=== PATIENT | female | born 1990 | race Caucasian/White ===

== ENCOUNTER → 2018-05-09 | Outpatient (CLI) | payer BC ==
[~2018-05-09] MED LIST: ALPR1TAB2 PO; AMOXICILLIN; BSP5T PO; BUTA-234 PO; BUTA1CAP3 PO; CLIN300C11 PO; CPR500T PO; DICL50TA4 PO; DOXY100C42 PO; FIOROCET; HYDR-2890 PO; HYDR-757 PO; IOHEXOL 350 MG/ML 100 ML (OMNIPAQUE 350) VIAL IV ONE; METH16TA2 PO; METH4TAB PO; METO-351 PO; METR500T PO; MIRT30TA PO; NS 100 ML (IVPB) BAG IV ONE; ONDA4TAB8 PO; PARO10TA81 PO; PHEN200T27 PO; RECEIVED CONTRAST (Hold Metformin) IV SCH; SERT50TA2 PO; SULF1TAB35 PO; SULF1TAB38 PO; TRAM-42 PO; YAZ BIRTH CONTROL
--- NOTE | 2018-05-09 12:07 | Diagnostic Imaging Report ---
PROCEDURE: CT abdomen and pelvis with contrast. TECHNIQUE: Multiple contiguous axial images were obtained through the abdomen and pelvis after administration of intravenous contrast. COMPARISON: Comparison is made to study of 01/15/2015. INDICATION: Right lower abdominal pain and cramping. FINDINGS: There is minimal dependent atelectasis in the lung bases. No focal hepatic or splenic lesion is identified. Gallbladder, biliary tree, and pancreas are unremarkable in appearance. There is no evidence of adrenal gland or renal abnormality. There is no free fluid seen within the abdomen or pelvis. No pathologically enlarged adenopathy is identified. There is mild fluid distention of distal small bowel loops in the lower abdomen and right lower quadrant. Terminal ileum does not appear to be involved. There is no evidence of appendiceal inflammation. Probable labial cysts are similar to the previous exam. IMPRESSION: No acute abnormality or significant change is seen when compared to previous study. There may be mild small bowel ileus or enteritis which is most pronounced in the right lower quadrant of the abdomen. Dictated by: Dictated on workstation # [id number]
== END ==
LOC: RAD 11:09
PROVIDERS: ATTEND Nurse Practitioner Community Health
DX: R10.31 Right lower quadrant pain (principal)
CPT/HCPCS: 74177

== ENCOUNTER 2021-10-07 22:17 | Inpatient (IN) | payer BC, OTHER ==
[~2021-10-07] VITALS: Ht 160 cm; Wt 62.2 kg
[~2021-10-07 22:17] MED LIST changes: +CLIN-144 PO; -CLIN300C11 PO; +DOXY-311 PO; -DOXY100C42 PO; -IOHEXOL 350 MG/ML 100 ML (OMNIPAQUE 350) VIAL IV ONE; +MIRT-94 PO; -MIRT30TA PO; -NS 100 ML (IVPB) BAG IV ONE; -RECEIVED CONTRAST (Hold Metformin) IV SCH
--- NOTE | 2021-10-07 22:26 | ED General ---
General Chief Complaint: Substance Abuse Stated Complaint: OVERDOSE Source of Information: EMS Exam Limitations: Other (PT ANSWERS "I DON'T KNOW" TO ALL QUESTIONS) History of Present Illness Date Seen by Provider: Oct 07, 2021 Time Seen by Provider: 22:13 Initial Comments PT ARRIVES VIA EMS FROM HOME PT WAS FOUND UNRESPONSIVE ON THE LIVING ROOM FLOOR BY PARENTS ON EMS ARRIVAL, PT WAS OBTUNDED, WITH RESPIRATIONS OF 4-6/MIN, O2 SAT 85% ON ROOM AIR AND LIPS WERE CYANOTIC. FAMILY REPORTED TO EMS THAT PT HAS HISTORY OF POLYSUBSTANCE ABUSE EMS GAVE A TOTAL OF 6 MG NARCAN AND PT IS NOW AWAKE, ALERT AND WAS ABLE TO ANSWER QUESTIONS FOR EMS. PT THEN TOLD EMS THAT SHE TOOK FENTANYL --BY MOUTH ACCUCHECK WAS 489 WITH KETONES, PER EMS--PT DOES NOT HAVE ANY HISTORY OF DIABETES. TEMP WAS 94.5 FOR EMS. PT REPORTEDLY HAD A "CYST" REMOVED LAST WEEK AND WAS PRESCRIBED BACTRIM AND OXYCODONE BRINGS IN A BOTTLE OF DULOXETINE PRESCRIBED ON 09/17/21 FAMILY REPORTED TO EMS THAT SHE TAKES KLONOPIN FOR ANXIETY. ON ARRIVAL, PT IS SHIVERING AND C/O BEING COLD, OTHERWISE ANSWERS "I DON'T KNOW" TO ALL QUESTIONS. PT DOES STATE SHE HAS NOT HAD COVID VACCINE LATER, PT IS ABLE TO STATE THAT SHE "TOOK TOO MANY PERCOCET" AND DENIES TAKING ANY FENTANYL STATES SHE BOUGHT THE PERCOCET "FROM A FRIEND" SHE DENIES ANY SUICIDAL INTENT. PT HAD BEEN PRESCRIBED A TOTAL OF #50 OXYCODONE 5/325 SINCE 09/16/21 BY HR ASSISTANT IN [facility] PT STATES SHE HAD A LEFT BARTHOLIN'S CYST REMOVED 09/30/21 PT WAS ALSO PLACED ON BACTRIM FOR THAT PROBLEM PT STATES SHE LIVES IN [place], [place], AND JUST CAME DOWN FOR THE DAY TO VISIT. PT'S HAS A DAUGHTER, WHO IS CURRENTLY WITH HER PARENTS, WHO LIVE HERE. DAD IS IN ROOM LATER AND HE STATES THAT THEY (HE AND AND GRAND DAUGHTER / PT'S DAUGHTER ) LEFT THE HOUSE AROUND 1999 TONIGHT AND PT WAS FINE AT THAT TIME--THEY HAD PT'S DAUGHTER WITH THEM AT THAT TIME. THEY RETURNED HOME AROUND 2129 AND FOUND PT UNRESPONSIVE ON THE FLOOR AND CALLED EMS. PER MED RECONCILIATION, PT HAS BEEN PRESCRIBED MULTIPLE PSYCH AND PAIN MEDICATIONS BY MULTIPLE PROVIDERS OVER THE LAST FEW MONTHS. SEE THAT LIST FOR DETAILS Allergies and Home Medications Allergies Coded Allergies: NKANo Known Allergies (Verified Allergy, Unknown, 01/17/07) Patient Home Medication List Clindamycin HCl (Clindamycin HCl) 300 Mg Capsule, 300 MG PO QID Prescribed by: VINNY FOSTER on 04/11/15 1437 Diclofenac Potassium (Diclofenac Potassium) 50 Mg Tablet, 50 MG PO Q8H PRN for PAIN Prescribed by: CANDI MARIE on 11/24/14 0444 Diclofenac Potassium (Diclofenac Potassium) 50 Mg Tablet, 50 MG PO Q8H PRN for PAIN Prescribed by: VINNY FOSTER on 04/11/15 1437 Sertraline Hcl (Sertraline Hcl) 50 Mg Tablet, 50 MG PO DAILY, (Reported) Entered as Reported by: CHRISTIE HERNÁNDEZ on 06/13/13 1846 Review of Systems Review of Systems Constitutional: see HPI Psychiatric/Neurological: See HPI Past Qgpicqh-Zpyfgq-Miyklo Hx Patient Social History Tobacco Use?: Yes Tobacco type used: Cigarettes Smoking Status: Current Everyday Smoker Substance use?: Yes Substance type: Opiates/Opioids, Misuse of prescript meds Alcohol Use?: No (DENIES) Immunizations Up To Date Tetanus Booster (TDap): Less than 5yrs Seasonal Allergies Seasonal Allergies: No Past Medical History Surgeries: Yes Orthopedic Cardiac: Yes Hypertension Reproductive Disorders: Yes (OVARIAN CYST) Female Reproductive Disorders: Ovarian Cyst Sexually Transmitted Disease: No HIV/AIDS: No Gastrointestinal: Yes Gastroesophageal Reflux Musculoskeletal: Yes Fractures Endocrine: No HEENT: No Cancer: No Psychosocial: Yes Anxiety, Suicide Attempts, Depression Adverse Reaction/Blood Tranf: No Family Medical History Alcoholism 09 BROTHER History of drug abuse 09 BROTHER, Onset:15s - 20 No Family History of: Cancer Chest pain Dementia Family history: Cardiovascular disease Family history: Diabetes mellitus Seizure disorder No Pertinent Family Hx Physical Exam Vital Signs Vital Signs - First Documented 10/07/21 10/07/21 22:17 22:58 Temp 35.6 Pulse 137 Resp 12 Pulse Ox 93 O2 Delivery Room Air O2 Flow Rate 4.00 Capillary Refill : Height, Weight, BMI Height: 5'4" Weight: 120lbs. 5.0oz. 54.029267ip; BMI Method:Stated General Appearance: Thin, Other (UNKEMPT. LIPS DRY AND CRACKED. SHIVERING, BUT IS AWAKE AND ALERT, SPEECH IS NOT SLURRED. ) HEENT: PERRL/EOMI (BUT PINPOINT), Other (DRY ORAL MUCOSA) Respiratory: Normal Breath Sounds, No Accessory Muscle Use, No Respiratory Distress Cardiovascular: No Murmur, Tachycardia Gastrointestinal: Non Tender, Soft Extremity: No Pedal Edema Neurologic/Psychiatric: Alert, No Motor/Sensory Deficits, Other (ORIENTED TO PERSON, PLACE, DISORIENTED TO TIME AND SITUATION ON ARRIVAL. PT IS SHIVERING. SPEECH IS NOT SLURRED. IS SOMEWHAT DROWSY ON ARRIVAL) Skin: Warm/Dry, Pallor Focused Exam Sepsis Stage: Ruled Out Reason for ruling out sepsis: DOES NOT MEET CRITERIA Lactate Level 10/07/21 22:28: Lactic Acid Level 9.83*H Time of Focused Exam: 23:40 Respiratory: Normal Breath Sounds, No Accessory Muscle Use, No Respiratory Distress Cardiovascular: No Edema, No Murmur, Other (HEART RATE DOWN TO 110'S) Capillary Refill: Less Than 3 Seconds Lactic Acid Level Laboratory Tests Test 10/07/21 22:28 Lactic Acid Level 9.83 MMOL/L (0.50-2.00) *H Within 3hrs of presentation: Admin fluids, Blood cultures prior to ABX's, Focus exam, Lactate level Procedures/Interventions Suture Size: 4-0 Progress/Results/Core Measures Suspected Sepsis SIRS Temperature: Pulse: Respiratory Rate: Laboratory Tests 10/07/21 22:22: White Blood Count 8.4 Blood Pressure / Mean: 10/07/21 22:28: Lactic Acid Level 9.83*H Laboratory Tests 10/07/21 22:22: Creatinine 1.13, Platelet Count 363, Total Bilirubin 0.2 Results/Orders Lab Results Laboratory Tests Test 10/07/21 22:22 10/07/21 22:28 10/07/21 22:33 10/07/21 22:42 Range/Units White Blood Count 8.4 4.3-11.0 10^3/uL Red Blood Count 4.27 3.80-5.11 10^6/uL Hemoglobin 13.4 11.5-16.0 g/dL Hematocrit 43 35-52 % Mean Corpuscular Volume 100 H 80-99 fL Mean Corpuscular Hemoglobin 31 25-34 pg Mean Corpuscular Hemoglobin Concent 32 32-36 g/dL Red Cell Distribution Width 13.6 10.0-14.5 % Platelet Count 363 130-400 10^3/uL Mean Platelet Volume 10.8 9.0-12.2 fL Immature Granulocyte % (Auto) 2 % Neutrophils (%) (Auto) 56 42-75 % Lymphocytes (%) (Auto) 39 12-44 % Monocytes (%) (Auto) 1 0-12 % Eosinophils (%) (Auto) 2 0-10 % Basophils (%) (Auto) 1 0-10 % Neutrophils # (Auto) 4.7 1.8-7.8 10^3/uL Lymphocytes # (Auto) 3.2 1.0-4.0 10^3/uL Monocytes # (Auto) 0.1 0.0-1.0 10^3/uL Eosinophils # (Auto) 0.2 0.0-0.3 10^3/uL Basophils # (Auto) 0.0 0.0-0.1 10^3/uL Immature Granulocyte # (Auto) 0.2 H 0.0-0.1 10^3/uL Sodium Level 141 135-145 MMOL/L Potassium Level 5.6 H 3.6-5.0 MMOL/L Chloride Level 103 98-107 MMOL/L Carbon Dioxide Level 17 L 21-32 MMOL/L Anion Gap 21 H 5-14 MMOL/L Blood Urea Nitrogen 15 7-18 MG/DL Creatinine 1.13 0.60-1.30 MG/DL Estimat Glomerular Filtration Rate 66 BUN/Creatinine Ratio 13 Glucose Level 363 H 70-105 MG/DL Calcium Level 9.2 8.5-10.1 MG/DL Corrected Calcium 8.8 8.5-10.1 MG/DL Magnesium Level 2.5 H 1.6-2.4 MG/DL Total Bilirubin 0.2 0.1-1.0 MG/DL Aspartate Amino Transf (AST/SGOT) 24 5-34 U/L Alanine Aminotransferase (ALT/SGPT) 19 0-55 U/L Alkaline Phosphatase 118 40-136 U/L Total Protein 7.3 6.4-8.2 GM/DL Albumin 4.5 3.2-4.5 GM/DL Lipase 37 8-78 U/L Beta-Hydroxybutyrate (Chem panel) 0.15 0.00-0.27 MMOL/L Procalcitonin 0.02 <0.10 NG/ML Serum Test, Qualitative NEGATIVE NEGATIVE Salicylates Level < 5.0 L 5.0-20.0 MG/DL Acetaminophen Level < 10 L 10-30 UG/ML Serum Alcohol < 10 <10 MG/DL Lactic Acid Level 9.83 *H 0.50-2.00 MMOL/L Influenza Type A (RT-PCR) Not Detected Not Detecte Influenza Type B (RT-PCR) Not Detected Not Detecte SARS-CoV-2 RNA (RT-PCR) Not Detected Not Detecte Urine Color YELLOW Urine Clarity CLEAR Urine pH 6.0 5-9 Urine Specific [place] 1.025 H 1.016-1.022 Urine Protein TRACE H NEGATIVE Urine Glucose (UA) 2+ H NEGATIVE Urine Ketones NEGATIVE NEGATIVE Urine Nitrite NEGATIVE NEGATIVE Urine Bilirubin NEGATIVE NEGATIVE Urine Urobilinogen 0.2 < = 1.0 MG/DL Urine Leukocyte Esterase NEGATIVE NEGATIVE Urine RBC (Auto) NEGATIVE NEGATIVE Urine RBC 0-2 /HPF Urine WBC 2-5 /HPF Urine Squamous Epithelial Cells NONE /HPF Urine Renal Epithelial Cells NONE /HPF Urine Crystals NONE /LPF Urine Bacteria NEGATIVE /HPF Urine Casts NONE /LPF Urine Mucus SMALL H /LPF Urine Yeast FEW H /HPF Urine Culture Indicated YES Urine Opiates Screen POSITIVE H NEGATIVE Urine Oxycodone Screen POSITIVE H NEGATIVE Urine Methadone Screen NEGATIVE NEGATIVE Urine Propoxyphene Screen NEGATIVE NEGATIVE Urine Barbiturates Screen NEGATIVE NEGATIVE Ur Tricyclic Antidepressants Screen NEGATIVE NEGATIVE Urine Phencyclidine Screen NEGATIVE NEGATIVE Urine Amphetamines Screen NEGATIVE NEGATIVE Urine Methamphetamines Screen NEGATIVE NEGATIVE Urine Benzodiazepines Screen NEGATIVE NEGATIVE Urine Cocaine Screen NEGATIVE NEGATIVE Urine Cannabinoids Screen POSITIVE H NEGATIVE Test 10/07/21 22:55 Range/Units Glucometer 221 H 70-110 MG/DL My Orders Orders - TORRES MOORE DO Ed Iv/Invasive Line Start (10/07/21 22:21) O2 (10/07/21 22:21) Monitor-Rhythm Ecg Trace Only (10/07/21 22:21) Acetaminophen (10/07/21 22:21) Alcohol (10/07/21 22:21) Cbc With Automated Diff (10/07/21 22:21) Comprehensive Metabolic Panel (10/07/21 22:21) Drug Screen Stat (Urine) (10/07/21 22:21) Hcg,Qualitative Serum (10/07/21 22:21) Lipase (10/07/21 22:21) Magnesium (10/07/21 22:21) Salicylate (10/07/21 22:21) Ua Culture If Indicated (10/07/21 22:21) Ed Iv/Invasive Line Start (10/07/21 22:21) Ns Iv 1000 Ml (Sodium Chloride 0.9%) (10/07/21 22:30) Procalcitonin (Pct) (10/07/21 22:21) Blood Culture (10/07/21 22:21) Ekg Tracing (10/07/21 22:21) Chest 1 View, Ap/Pa Only (10/07/21 22:21) Covid 19 Inhouse Test (10/07/21 22:21) Influenza A And B By Pcr (10/07/21 22:21) Isolation Central Supply Req (10/07/21 22:21) Accucheck Stat ONCE (10/07/21 22:21) Catheter(Urinary) Insert & Ass 03,15 (10/07/21 22:21) Lactic Acid Analyzer (10/07/21 22:21) Beta Hydroxybutyrate (10/07/21 22:21) Hemoglobin A1c (10/07/21 22:21) Urine Culture (10/07/21 22:42) Naloxone Injection (Narcan Injection) (10/07/21 23:01) Naloxone Injection (Narcan Injection) (10/07/21 23:30) Medications Given in ED Current Medications Medications Dose Ordered Sig/Renato Route Start Time Stop Time Status Last Admin Dose Admin Naloxone HCl 1 mg ONCE ONCE IV 10/07/21 23:30 10/07/21 23:32 DC 10/07/21 23:00 1 MG Vital Signs/I&O 10/07/21 10/07/21 10/07/21 22:17 22:58 23:46 Temp 35.6 36.7 Pulse 137 Resp 12 B/P (MAP) Pulse Ox 93 95 O2 Delivery Room Air OxyMask O2 Flow Rate 4.00 10/08/21 00:00 Intake Total 1075 ml Balance 1075 ml Capillary Refill : Progress Note : Progress Note PT GIVEN WARM IV FLUIDS AND BLANKETS PT IS NO LONGER SHIVERING AND STATES SHE FEELS MUCH BETTER O2 SATS WERE UPPER 90'S ON ROOM AIR ON ARRIVAL THEY DID DROP TO UPPER 80'S, DUE TO SHALLOW BREATHING ALTHOUGH PT WAS AWAKE/A LERT/ORIENTED AND TALKING GIVEN AN ADDITIONAL DOSE OF NARCAN 1 MG, AND PLACED ON OXIMASK AT 5L AND O2 SATS UP TO 100% PT REMAINED AWAKE AND ALERT AND NO DETERIORATION IN PT'S CONDITION DURING ER STAY HEART RATE DOWN TO 110-120 AT TIME OF ADMIT. BP > 100 SYSTOLIC AT TIME OF ADMIT. DISCUSSED WITH PT AND HER FATHER THE SERIOUSNESS OF WHAT SHE DID TONIGHT, AND THAT SHE NEARLY DUE TO HER ACTIONS TONIGHT. ALSO DISCUSSED WITH THEM THE FUTURE NEED FOR ADDICTION TREATMENT, SHE ADMITS TO ABUSING PRESCRIPTION MEDICATION. ECG Initial ECG Impression Date: Oct 07, 2021 Initial ECG Impression Time: 22:49 Initial ECG Rate: 124 Initial ECG Rhythm: S.Tach Departure Communication (Admissions) 4809--SPOKE WITH DR. CALIX, HOSPITALIST, ACCEPTS PT FOR ADMIT. Impression Primary Impression: Drug overdose Additional Impressions: Hyperglycemia Lactic acidosis Substance abuse Disposition: ADMITTED INPATIENT Condition: Stable Admissions Decision to Admit Reason: Admit from ER (General) Decision to Admit/Date: Oct 07, 2021 Time/Decision to Admit Time: 23:45 Departure-Patient Inst. Referrals: [facility] (PCP/Family) Primary Care Physician Patient Instructions: ALCOHOL AND SUBSTANCE ABUSE TORRES MOORE DO Oct 07, 2021 22:26
[2021-10-07] MEDS ORDERED: NS IV 1000 ML 1,000 ML IV SCH (22:30)
[2021-10-07 22:31] LABS: BASOPHILS % (AUTO) 1 % (0-10); EOSINOPHILS # (AUTO) 0.2 10^3/uL (0.0-0.3); EOSINOPHILS % (AUTO) 2 % (0-10); HEMATOCRIT 43 % (35-52); HEMOGLOBIN 13.4 g/dL (11.5-16.0); LYMPHOCYTES # (AUTO) 3.2 10^3/uL (1.0-4.0); LYMPHOCYTES % (AUTO) 39 % (12-44); MEAN CORPUSCULAR HEMOGLOBIN 31 pg (25-34); MEAN CORPUSCULAR HGB CONC 32 g/dL (32-36); MEAN CORPUSCULAR VOLUME 100 fL (80-99); MEAN PLATELET VOLUME 10.8 fL (9.0-12.2); MONOCYTES # (AUTO) 0.1 10^3/uL (0.0-1.0); MONOCYTES % (AUTO) 1 % (0-12); NEUTROPHILS # (AUTO) 4.7 10^3/uL (1.8-7.8); NEUTROPHILS % (AUTO) 56 % (42-75); PLATELET COUNT 363 10^3/uL (130-400); WHITE BLOOD COUNT 8.4 10^3/uL (4.3-11.0)
[2021-10-07 22:40] LABS: CHLORIDE 103 MMOL/L (98-107); POTASSIUM 5.6 MMOL/L (3.6-5.0); SODIUM 141 MMOL/L (135-145)
[2021-10-07 22:41] LABS: ALBUMIN 4.5 GM/DL (3.2-4.5)
[2021-10-07 22:42] LABS: CALCIUM 9.2 MG/DL (8.5-10.1)
[2021-10-07 22:43] LABS: GLUCOSE 363 MG/DL (70-105); TOTAL PROTEIN 7.3 GM/DL (6.4-8.2)
[2021-10-07 22:44] LABS: CARBON DIOXIDE 17 MMOL/L (21-32)
[2021-10-07 22:45] LABS: BILIRUBIN,TOTAL 0.2 MG/DL (0.1-1.0)
[2021-10-07 22:47] LABS: ALKALINE PHOSPHATASE 118 U/L (40-136); CREATININE SERUM 1.13 MG/DL (0.60-1.30); GFR ESTIMATED 66
[2021-10-07 22:48] LABS: BUN/CREATININE RATIO 13
[2021-10-07 22:50] LABS: ALANINE AMINOTRANSFERASE 19 U/L (0-55); MAGNESIUM 2.5 MG/DL (1.6-2.4); SALICYLATE < 5.0 MG/DL (5.0-20.0)
[2021-10-07 22:51] LABS: LIPASE 37 U/L (8-78)
[2021-10-07 22:56] LABS: BILIRUBIN,URINE NEGATIVE (NEGATIVE); CLARITY,URINE CLEAR; COLOR,URINE YELLOW; GLUCOSE, URINE (UA) 2+ (NEGATIVE); KETONES,URINE NEGATIVE (NEGATIVE); LEUKOCYTE ESTERASE ,URINE NEGATIVE (NEGATIVE); NITRITE,URINE NEGATIVE (NEGATIVE); PROTEIN,URINE TRACE (NEGATIVE)
[2021-10-07 23:00] LABS: ACETAMINOPHEN < 10 UG/ML (10-30)
[2021-10-07] MEDS: NALOXONE 2 MG/2 ML (NARCAN) SYR IV ONE ×2 (23:00→23:33)
[2021-10-07] MEDS ORDERED: NALOXONE 2 MG/2 ML (NARCAN) SYR ONE (23:01)
[2021-10-07 23:03] LABS: BACTERIA,URINE NEGATIVE /HPF; RBC,URINE 0-2 /HPF; YEAST,URINE FEW /HPF
[2021-10-07 23:07] LABS: AMPHETAMINE SCREEN, URINE NEGATIVE (NEGATIVE); BARBITURATE SCREEN URINE NEGATIVE (NEGATIVE); BENZODIAZEPINES SCREEN URINE NEGATIVE (NEGATIVE); CANNABINOID SCREEN, URINE POSITIVE (NEGATIVE); COCAINE SCREEN URINE NEGATIVE (NEGATIVE); METHADONE STAT NEGATIVE (NEGATIVE); OPIATE SCREEN URINE POSITIVE (NEGATIVE); OXYCODONE STAT POSITIVE (NEGATIVE); PROPOXYPHENE STAT NEGATIVE (NEGATIVE); TRICYCLIC ANTIDEPRESSANTS SCRE NEGATIVE (NEGATIVE)
[2021-10-08] MEDS ORDERED: NS IV 1000 ML 1,000 ML IV SCH (00:15)
[2021-10-08 00:39] VITALS: BP 100/56
[2021-10-08] MEDS ORDERED: ACETAMINOPHEN 500 MG TAB (TYLENOL) PO PRN (01:30)
[2021-10-08] MEDS ORDERED: NALOXONE 0.4 MG/ML 1 ML (NARCAN) VIAL IV PRN (01:30)
[2021-10-08] MEDS ORDERED: ONDANSETRON 4 MG/2 ML (SDV) Z0FRAN IV PRN (01:30)
[2021-10-08] MEDS: 1/2 NS IV SOLUTION 1,000 ML IV SCH ×3 (01:46→09:30)
[2021-10-08 05:25] LABS: BASOPHILS % (AUTO) 0 % (0-10); EOSINOPHILS % (AUTO) 0 % (0-10); HEMATOCRIT 31 % (35-52); HEMOGLOBIN 10.1 g/dL (11.5-16.0); LYMPHOCYTES # (AUTO) 1.1 10^3/uL (1.0-4.0); LYMPHOCYTES % (AUTO) 8 % (12-44); MEAN CORPUSCULAR HEMOGLOBIN 31 pg (25-34); MEAN CORPUSCULAR HGB CONC 32 g/dL (32-36); MEAN CORPUSCULAR VOLUME 97 fL (80-99); MEAN PLATELET VOLUME 11.4 fL (9.0-12.2); MONOCYTES # (AUTO) 0.9 10^3/uL (0.0-1.0); MONOCYTES % (AUTO) 6 % (0-12); NEUTROPHILS # (AUTO) 12.7 10^3/uL (1.8-7.8); NEUTROPHILS % (AUTO) 86 % (42-75); PLATELET COUNT 258 10^3/uL (130-400); WHITE BLOOD COUNT 14.8 10^3/uL (4.3-11.0)
[2021-10-08] MEDS ORDERED: NS IV 500 ML 500 ML IV PRN (05:45)
[2021-10-08 05:48] LABS: CALCIUM 7.4 MG/DL (8.5-10.1); CREATININE SERUM 0.58 MG/DL (0.60-1.30); MAGNESIUM 1.8 MG/DL (1.6-2.4)
[2021-10-08] MEDS: inSUlin ASPART (NovoLOG) 1 UNIT/0.01 ML (CHARGE PER UNIT) SC SCH ×2 (05:50→11:00)
[2021-10-08 05:55] LABS: ATYPICAL LYMPHOCYTES 2 %; BAND NEUTROPHILS 1 %; LYMPHOCYTES % (MANUAL) 8 %; MONOCYTES % (MANUAL) 2 %; NEUTROPHILS % (MANUAL) 87 %
[2021-10-08 05:56] LABS: RBC MORPH NORMAL
[2021-10-08] MEDS ORDERED: KCL 20 MEQ TAB (K-DUR) PO SCH (06:00)
[2021-10-08] MEDS ORDERED: POTASSIUM CL 10MEQ/50ML IVPB 50 ML IV SCH (06:00)
[2021-10-08] MEDS ORDERED: MAGNESIUM 1 GM/100 ML IVPB 100 ML IV SCH (06:00)
--- NOTE | 2021-10-08 08:15 | Diagnostic Imaging Report ---
INDICATION: Altered mental status, overdose. Frontal chest obtained at 1116 p.m. Heart and mediastinal silhouette are normal in appearance. There is no pneumothorax or pleural fluid. There are patchy bilateral infiltrates. IMPRESSION: Patchy bilateral perihilar infiltrates. No pneumothorax or pleural fluid. Dictated by: Dictated on workstation # [id number]
--- NOTE | 2021-10-08 08:25 | Short Stay Summary-Hospitalist ---
History of Present Illness HPI/Chief Complaint Patient is a 31-year-old female with a past medical history of polysubstance abuse who presented to the hospital due to altered mental status. She was found by her family unresponsive with agonal respirations and EMS was summoned. She was given Narcan by EMS with improvement in her mentation. She reports that she recently had a Bartholin cyst removed and has had significant pain from that. She was carrying her 7-month old daughter around a lot yesterday and had increased pain so took a friend's prescription medicine and then does not remember much after that. She does not disclose any history of pepper bstance abuse to me but per the ER note her family reported that to them. This morning she is alert and oriented and has no complaints. She adamanatly denies any thoughts of self harm and insists this was accidental. She is tearful at times. She is asking for her catheter to be removed and would like to eat. She is agreeable to discussing her situation with elementary school social worker to get access to resources for drug use. Source: patient Date Seen 10/08/21 Time Seen by a Provider: 07:45 Attending Physician [facility] PCP Admitting Physician: Paulie Saleh MD Attending Physician: Paulie Saleh MD Referring Physician Date of Admission Oct 08, 2021 at 00:01 Home Medications & Allergies Home Medications Reviewed patient Home Medication Reconciliation performed by pharmacy medication reconciliations biomedical electronics technician and/or nursing. Patients Allergies have been reviewed. Allergies Allergies Coded Allergies NKANo Known Allergies (Verified Allergy, Unknown, 01/17/07) Past Wmvmwzd-Ffnvkp-Rkfsee Hx Patient Social History [place] Status: Employed/Student: employed Tobacco Use?: Yes Tobacco type used: Cigarettes Smoking Status: Current Everyday Smoker Substance use?: No Substance type: Opiates/Opioids, Misuse of prescript meds Alcohol Use?: No (DENIES) Pt feels they are or have been: Yes Immunizations Up To Date Date of Influenza Vaccine: Dec 11, 2014 Tetanus Booster (TDap): Unknown Seasonal Allergies Seasonal Allergies: No Current Status status: No status: No Communicates: Verbally Primary Language: Zimbabwean Preferred Spoken Language: Zimbabwean Sensory deficits: Vision impairment Past Medical History Surgeries: Orthopedic Hypertension Sexually Transmitted Disease: No HIV/AIDS: No Gastroesophageal Reflux Fractures Anxiety, Suicide Attempts, Depression Adverse Reaction/Blood Tranf: No Family Medical History Reviewed Nursing Family Hx Alcoholism 09 BROTHER History of drug abuse 09 BROTHER, Onset:15's - 20 No Family History of: Cancer Chest pain Dementia Family history: Cardiovascular disease Family history: Diabetes mellitus Seizure disorder Review of Systems Constitutional: No chills, No fever EENTM: no symptoms reported Respiratory: see HPI Cardiovascular: No chest pain, No edema, No Hx of Intervention Gastrointestinal: No abdominal pain, No nausea, No vomiting Genitourinary: see HPI Musculoskeletal: see HPI Skin: no symptoms reported Psychiatric/Neurological: No Symptoms Reported Physical Exam Physical Exam Vital Signs Vital Signs - First Documented 10/07/21 10/07/21 10/08/21 22:17 22:58 00:39 Temp 35.6 Pulse 137 Resp 12 B/P (MAP) 100/56 Pulse Ox 93 O2 Delivery Room Air O2 Flow Rate 4.00 Capillary Refill : Less Than 3 Seconds Height, Weight, BMI Height: 5'4" Weight: 120lbs. 5.0oz. 54.908951mn; 23.94 BMI Method:Stated General Appearance: No Apparent Distress, Thin HEENT: PERRL/EOMI, Moist Mucous Membranes; No Scleral Icterus (L), No Scleral Icterus (R) Neck: Normal Inspection, Supple Respiratory: Lungs Clear, No Accessory Muscle Use, No Respiratory Distress Cardiovascular: Regular Rate, Rhythm, No Edema, No Murmur Gastrointestinal: Normal Bowel Sounds, Non Tender, Soft Extremity: Normal Capillary Refill, No Calf Tenderness, No Pedal Edema Neurologic/Psychiatric: Alert, Oriented x3, Normal Mood/Affect; No Aphasia, No Facial Droop Skin: Normal Color, Warm/Dry Results Results/Procedures Labs Laboratory Tests 10/07/21 22:22 10/08/21 03:57 Patient resulted labs reviewed. Imaging: Reviewed Imaging Report Imaging [facility], [place] NAME: ALISALAVERNE D [facility] REC#: [id number] PT STATUS: ADM IN : 1990 PHYSICIAN: TORRES MOORE DO ADMIT DATE: 10/08/21/ICU Signed Date of Exam:10/07/21 CHEST 1 VIEW, AP/PA ONLY INDICATION: Altered mental status, overdose. Frontal chest obtained at 1116 p.m. Heart and mediastinal silhouette are normal in appearance. There is no pneumothorax or pleural fluid. There are patchy bilateral infiltrates. IMPRESSION: Patchy bilateral perihilar infiltrates. No pneumothorax or pleural fluid. Dictated by: Dictated on workstation # [id number] Dict: 10/08/21 0810 Trans: 10/08/21 1109 NAT [id number] Interpreted by: SARA ZAPATA MD Electronically signed by: SARA ZAPATA MD 10/08/21 1109 Short Stay Diagnosis Discharge Diagnosis-Short Stay Admission Diagnosis Accidental overdose- opoid Final Discharge Diagnosis Accidental overdose- opoid Conclusion Plan Accidental overdose- opoid Mentation returned to baseline Patient reports desire to seek treatment, resources given financial services officer contacted, appreciate recs I discussed with patient frankly about the importance of medication use only as prescribed and only using her own medications as this can be fatal, she expresses understanding Plans to DC to parents home to stay for the weekend Diagnosis/Problems Diagnosis/Problems (1) Drug overdose Status: Acute Qualifiers: Qualified Codes: T50.901A - Poisoning by unspecified drugs, medicaments and biological substances, accidental (unintentional), initial encounter (2) Substance abuse Status: Acute PAULIE SALEH MD Oct 08, 2021 08:25
--- NOTE | 2021-10-08 10:36 | Discharge Inst-Simple/Standard ---
Discharge Inst-Standard Patient Instructions/Follow Up Plan of Care/Instructions/FU: Please take your medications only as written. Please do not use other people's medications. You were very ill when you came to the hospital and could from an overdose. Please follow up with the resources for treatment as given to you by the the social worker school. Activity as Tolerated: Yes Discharge Diet: No Restrictions Return to The Hospital For: Chest pain, shortness of breath, confusion, weakness, difficulty breathing, if you feel you are getting worse. PAULIE CALIX MD Oct 08, 2021 10:36
[2021-10-08] MEDS ORDERED: OXYC1TAB11 PO (11:29)
[2021-10-08] MEDS ORDERED: CLON1TAB13 PO (11:29)
[2021-10-08] MEDS ORDERED: NORE0.3520 PO (11:29)
[2021-10-08] MEDS ORDERED: QUET50TA23 PO (11:29)
[2021-10-08] MEDS ORDERED: DULO60CA59 PO (11:29)
[2021-10-08] MEDS ORDERED: GBPN600T PO (11:29)
[2021-10-08] MEDS ORDERED: DULO30CA49 PO (11:29)
[2021-10-08] MEDS ORDERED: SULF-221 PO (11:29)
== END 2021-10-08 12:40 | disposition home or self-care (01) | DRG 918 ==
LOC: EDUNIT# 22:17 → ER 22:18 → EDLOC 10-08 00:01 → ICU 10-08 00:01
PROVIDERS: ADMIT Family Medicine; ATTEND Family Medicine
DX: T40.2X1A Poisoning by other opioids, accidental (unintentional), initial encounter (principal); E87.2 Acidosis; F19.10 Other psychoactive substance abuse, uncomplicated; I10 Essential (primary) hypertension; K21.9 Gastro-esophageal reflux disease without esophagitis; F41.9 Anxiety disorder, unspecified; F32.A Depression, unspecified; F17.210 Nicotine dependence, cigarettes, uncomplicated; R73.9 Hyperglycemia, unspecified; Z20.822 Contact with and (suspected) exposure to COVID-19
CPT/HCPCS: 36415; 51702; 71045; 80048; 80053; 80306; 80320; 80329; 81000; 82010; 82947; 83036; 83605; 83690; 83735; 84145; 84703; 85007; 85025; 85027; 87040; 87081; 87088; 87636; 93005; 93041